=== PATIENT | female | born 1995 | race Caucasian/White ===

== ENCOUNTER 2016-10-25 23:42 | Emergency (ER) | payer OTHER ==
[2016-10-25 23:47] VITALS: BP 150/91; PULSE 88; TEMP 98; BMI 25.0
[2016-10-26 01:48] LABS: BASOPHIL 0.3 % (0-2.0); EOSINOPHIL 0.8 % (0-4.5); MCH 20.4 pg (25.7-33.7); MCHC 32.2 g/dl (32.0-36.0); MEAN CELL VOLUME 63.4 fl (80-96); MEAN PLT VOLUME 9.1 fl (7.5-11.1); NEUTROPHILS 74.4 % (42.8-82.8); PLATELET COUNT 266 K/MM3 (134-434); RDW 18.9 % (11.6-15.6); WHITE BLOOD COUNT 15.6 K/mm3 (4.0-10.0)
--- NOTE | 2016-10-26 02:50 | PDOC ---
History of Present Illness - General Chief Complaint: Vaginal Bleeding Stated Complaint: VAGINAL BLEEDING Time Seen by Provider: 10/26/16 00:07 - History of Present Illness Initial Comments: 10/26/16 02:49 CHIEF COMPLAINT: vaginal bleeding HISTORY OF PRESENT ILLNESS: 21 yo F 8 week F with no significant PMH presents to ED with suprapubic discomfort x 2 weeks with 3 episodes of vaginal bleeding. Patient reports the bleeding as very little but she was concerned. She reports some nausea over the past two weeks with 3-4 episodes of vomiting, denies fever, diarrhea. No recent travel or sick contacts. PAST MEDICAL HISTORY: Denies past medical history FAMILY HISTORY: Denies SOCIAL HISTORY: Denies tobacco, alcohol, illicit drug use. SURGICAL HISTORY: Denies ALLERGIES: No known drug allergies REVIEW OF SYSTEMS General/Constitutional: Denies fever or chills. Denies weakness, weight change. HEENT: Denies change in vision. Denies ear pain or discharge. Denies sore throat. Cardiovascular: Denies chest pain or shortness of breath. Respiratory: Denies cough, wheezing, or hemoptysis. Gastrointestinal: Suprapubic discomfort. Nausea, 3-4 episodes of vomiting. Denies diarrhea, constipation rectal bleeding. Genitourinary: Denies dysuria, frequency, or change in urination. Musculoskeletal: Denies joint or muscle swelling or pain. Denies neck or back pain. Skin and breasts: Denies rash or easy bruising. PHYSICAL EXAM General Appearance: Well-appearing, appropriately dressed. No apparent distress.. HEENT: EOMI, PERRLA, normal voice. No conjunctival pallor. No photophobia, scleral icterus. Respiratory/Chest: Lungs CTAB. Cardiovascular: RRR. S1, S2. Gastrointestinal/Abdominal: Normal bowel sounds. Abdomen soft, non-distended. No tenderness or rebound tenderness. No organomegaly, pulsatile mass, guarding , hernia, hepatomegaly, splenomegaly. Pelvic: External genitalia normal without lesions. Vaginal vault is clear without blood or discharge. Cervix is long and closed. No cervical motion tenderness. Uterus is nontender and normal in size. Adnexa are nontender and without masses. Musculoskeletal/Extremities: Normal inspection. FROM of all extremities, normal capillary refill. Pelvis Stable. No CVA tenderness. No tenderness to extremities, pedal edema, swelling, erythema or deformity. Integumentary: Appropriate color, dry, warm. No cyanosis, erythema, jaundice or rash Neurologic: diabetes solutions specialist II-XII intact. Fully oriented, alert. Appropriate mood/affect. Motor strength 5/5. No appreciable EOM palsy, facial droop or sensory deficit. 10/26/16 02:56 Past History - Past Medical History Allergies/Adverse Reactions: Allergies Allergy/AdvReac Type Severity Reaction Status Date / Time No Known Allergies Allergy Verified 10/25/16 23:45 Home Medications: Ambulatory Orders NK [No Known Home Medication] 10/25/16 Anemia: Yes - Surgical History Cardiac Surgery: Yes (x2) - Reproductive History (#): 4 Para: 2 - Psycho/Social/Smoking Cessation Hx Anxiety: No Suicidal Ideation: No Smoking History: Never smoked Have you smoked in the past 12 months: No Hx Alcohol Use: No Drug/Substance Use Hx: No Substance Use Type: None *Physical Exam - Vital Signs Last Vital Signs Temp Pulse Resp BP Pulse Ox 98 F 88 18 150/91 100 10/25/16 23:46 10/25/16 23:46 10/25/16 23:46 10/25/16 23:46 10/25/16 23:46 ED Treatment Course - LABORATORY CBC & Chemistry Diagram: 10/26/16 01:40 - ADDITIONAL ORDERS Additional order review: Laboratory Results 10/26/16 01:40 Beta HCG, Quant [id number] 10/26/16 01:40 RBC 4.97 MCV 63.4 L MCHC 32.2 RDW 18.9 H D MPV 9.1 Neutrophils % 74.4 Lymphocytes % 17.1 Monocytes % 7.4 Eosinophils % 0.8 Basophils % 0.3 - RADIOLOGY Radiology Studies Ordered: Category Date Time Status <14WKS US [US] Stat Ultrasound 10/26/16 00:18 Taken Medical Decision Making - Medical Decision Making 10/26/16 02:59 21 yo 8 week F with no significant PMH presents to ED with vaginal bleeding and suprapubic cramping. -CBC, CMP, T&S -TV U/S eval IUP/FHT Labs: WBC 15.6, wnl for . T&S - O+, no indication for rhogam Ultrasound results: FINDINGS: Ultrasound :Uterus is anteverted and measures 11.2centimeters in length. There is a single live IUP with estimated gestational age of 7weeks and onedays. There is a normal heart rate of 163beats per minute. There is no subchorionic bleed. The right ovary measures 2.6centimeters in length and appears normal. The left ovary measures 2.7centimeters in length and appears normal. There is no significant free fluid. Pelvic duplex: There is normal arterial and venous flow in both ovaries. IMPRESSION: Live IUP with estimated age 7 weeks one day, without definite abnormalities. Read by: Tito Villalobos MD Advised patient that she must follow up in two days for repeat hCG, either in this ER or with OB. Referral for OB provided. Advised patient of signs and symptoms for return to ER; patient verbalized understanding and agrees to plan. *DC/Admit/Observation/Transfer Diagnosis at time of Disposition: Threatened in first trimester - Discharge Dispostion Disposition: HOME Condition at time of disposition: Stable Admit: No - Referrals Referrals: Lane Castrejon MD [Staff Physician] - - Patient Instructions Printed Discharge Instructions: DI for Threatened Additional Instructions: As discussed, you have to return to this ER or go to the track car operator in 2 days for a repeat blood test. If you experience any severe vaginal bleeding (more than one soaked pad an hour), headache, dizziness, or persistent vomiting and are unable to tolerate any food or fluids, please return to the ER. Rodger se discuti, usted tiene que regresar a dunia ER o ir al obstetra en 2 fishman para thad otra prueba de allan. Si tiene thad hemorragia vaginal severa (ms de thad almohadilla empapada por hora), dolor de jennifer, mareos o vmitos persistentes y no puede tolerar ningn alimento o lquidos, por favor regrese a la nathan de emergencias. Print Language: MALAGASY
[2016-10-26 03:03] LABS: PLATELET COMMENT2 NO CLOTTING DETECTED; PLATELET ESTIMATE ADEQUATE (NORMAL); POLYCHROMASIA 2+
[2016-10-26 03:04] LABS: ANISOCYTOSIS 2+; HYPOCHROMIA 2+; MICROCYTOSIS 3+; POIKILOCYTOSIS 2+
== END 2016-10-26 04:18 | disposition home or self-care (01) ==
LOC: JER 23:42
DX: O26.891 Other specified pregnancy related conditions, first trimester (principal); O20.0 Threatened abortion; Z3A.08 8 weeks gestation of pregnancy
CPT/HCPCS: 36415; 76801-TC; 84702; 85025; 86850; 86900; 86901; 99283-25

== ENCOUNTER 2016-11-14 00:25 | Emergency (ER) | payer OTHER ==
[2016-11-14] MEDS ORDERED: SODIUM CHLORIDE 1,000 ML IV STA (02:56)
--- NOTE | 2016-11-14 03:07 | PDOC ---
History of Present Illness - General Chief Complaint: Vaginal Bleeding Stated Complaint: 10 WKS/VAGINAL BLEEDING Time Seen by Provider: 11/14/16 02:42 History Source: Patient Exam Limitations: Language Barrier (Clever promotion specialist used for this service) - History of Present Illness Initial Comments: 11/14/16 04:56 21 year old 10 week female with pelvic pain and vaginal bleeding x 1 day. + nausea and vomiting. denies fever. History of thalessemia Past History - Past Medical History Allergies/Adverse Reactions: Allergies Allergy/AdvReac Type Severity Reaction Status Date / Time No Known Allergies Allergy Verified 11/14/16 03:23 Home Medications: Ambulatory Orders Nitrofurantoin Monohyd/M-Cryst [Macrobid -] 100 mg PO BID #14 capsule 11/14/16 Anemia: Yes - Surgical History Cardiac Surgery: Yes (x2) - Reproductive History (#): 4 Para: 2 - Psycho/Social/Smoking Cessation Hx Anxiety: No Suicidal Ideation: No Smoking History: Never smoked Have you smoked in the past 12 months: No Hx Alcohol Use: No Drug/Substance Use Hx: No Substance Use Type: None Review of Systems - Review of Systems Able to Perform ROS?: Yes Is the patient limited Yi proficient: No Constitutional: No: Symptoms Reported, See HPI, Chills, Diaphoresis, Fever, Loss of Appetite, Malaise, Night Sweats, Weakness, Weight Stable, Unintentional Wgt. Loss, Unexplained wgt Loss, Other ABD/GI: Yes: Nausea, Vomiting Neurological: Yes: Headache. No: Symptoms reported, See HPI, Numbness, Paresthesia, Pre-Existing Deficit, Seizure, Tingling, Tremors, Weakness, Unsteady Gait, Ataxia, Dizziness, Other *Physical Exam - Vital Signs 11/14/16 05:11 Last Vital Signs Temp Pulse Resp BP Pulse Ox 98.0 F 82 14 150/102 100 11/14/16 03:23 11/14/16 03:23 11/14/16 03:23 11/14/16 03:23 11/14/16 03:23 - Physical Exam General Appearance: Yes: Appropriately Dressed HEENT: positive: Normal ENT Inspection Respiratory/Chest: positive: Lungs Clear, Normal Breath Sounds Cardiovascular: positive: Regular Rhythm, Regular Rate Female Pelvic Exam: positive: normal external exam, cervical os closed, other ( yellow/ brown discharge) Gastrointestinal/Abdominal: positive: Normal Bowel Sounds, Soft Extremity: positive: Normal Capillary Refill, Normal Inspection, Normal Range of Motion, Pelvis Stable Integumentary: positive: Normal Color, Dry, Warm Neurologic: positive: Fully Oriented, Alert, Normal Mood/Affect, Normal Response , Motor Strength / ED Treatment Course - LABORATORY CBC & Chemistry Diagram: 11/14/16 03:43 11/14/16 03:43 Progress Note - Progress Note Progress Note: A: pelvic pain in 1st trimester with vaginal bleeding P: cbc cmp ua: WBC + 1 leuks US : pending Medical Decision Making - Medical Decision Making 11/14/16 07:08 pending US results. patient signed out to Darlyn ANDRADE. *DC/Admit/Observation/Transfer Diagnosis at time of Disposition: Pelvic pain affecting in first trimester, antepartum Urinary tract infection Qualifiers: Urinary tract infection type: acute cystitis Hematuria presence: with hematuria Qualified Code(s): N30.01 - Acute cystitis with hematuria - Discharge Dispostion Disposition: HOME Condition at time of disposition: Good - Prescriptions Prescriptions: Nitrofurantoin Monohyd/M-Cryst [Macrobid -] 100 mg PO BID #14 capsule - Referrals Referrals: STAFF,NOT ON [Primary Care Provider] - - Patient Instructions Printed Discharge Instructions: Urinary Tract Infection Additional Instructions: Please drink plenty of fluids and take Macrobid as prescribed. Please follow-up with your PULP COOKER and if symptoms worsen return to the ED.
[2016-11-14 03:24] VITALS: BMI 28.3
[2016-11-14 04:22] LABS: BASOPHIL 0.6 % (0-2.0); EOSINOPHIL 1.7 % (0-4.5); MCH 20.9 pg (25.7-33.7); MCHC 32.7 g/dl (32.0-36.0); MEAN PLT VOLUME 9.1 fl (7.5-11.1); NEUTROPHILS 61.6 % (42.8-82.8); PLATELET COUNT 229 K/MM3 (134-434); RDW 20.6 % (11.6-15.6); WHITE BLOOD COUNT 10.4 K/mm3 (4.0-10.0)
[2016-11-14 04:23] LABS: URINE APPEARANCE SLCLOUDY; URINE BILIRUBIN NEGATIVE (NEGATIVE); URINE BLOOD NEGATIVE (NEGATIVE); URINE COLOR LTYELLOW; URINE GLUCOSE (UA) NEGATIVE (NEGATIVE); URINE KETONE NEGATIVE (NEGATIVE); URINE NITRITE NEGATIVE (NEGATIVE); URINE PROTEIN NEGATIVE (NEGATIVE); URINE UROBILINOGEN NEGATIVE E.U./dl (0.2-1.0)
[2016-11-14 04:29] LABS: URINE LEUK ESTERASE 1+ (NEGATIVE)
[2016-11-14 04:32] LABS: URINE BACTERIA FEW /hpf (NONE SEEN); URINE MUCUS RARE; URINE RBC 1 /hpf (0-3); URINE WBC 16 /hpf (3-5)
--- NOTE | 2016-11-14 04:37 | PDOC ---
*Physical Exam - Vital Signs Last Vital Signs Temp Pulse Resp BP Pulse Ox 98.0 F 82 14 150/102 100 11/14/16 03:23 11/14/16 03:23 11/14/16 03:23 11/14/16 03:23 11/14/16 03:23 ED Treatment Course - LABORATORY CBC & Chemistry Diagram: 11/14/16 03:43 11/14/16 03:43 - ADDITIONAL ORDERS Additional order review: Laboratory Results 11/14/16 03:19 Urine Color Ltyellow Urine Appearance Slcloudy Urine pH 6.0 Ur Specific [place] 1.012 Urine Protein Negative Urine Glucose (UA) Negative Urine Ketones Negative Urine Blood Negative Urine Nitrite Negative Urine Bilirubin Negative Urine Urobilinogen Negative Ur Leukocyte Esterase 1+ H D Urine RBC 1 Urine WBC 16 Ur Epithelial Cells Few Urine Bacteria Few Urine Mucus Rare 11/14/16 03:43 RBC 4.82 MCV 64.0 L MCHC 32.7 RDW 20.6 H MPV 9.1 Neutrophils % 61.6 Lymphocytes % 26.9 D Monocytes % 9.2 Eosinophils % 1.7 D Basophils % 0.6 - Medications Given in the ED: ED Medications Discontinued Medications Generic Name Dose Route Start Last Admin Trade Name Freq PRN Reason Stop Dose Admin Sodium Chloride 1,000 mls @ 1,000 mls/hr 11/14/16 02:56 11/14/16 04:17 Normal Saline - IV 11/14/16 03:55 1,000 mls/hr ASDIR STA Administration Medical Decision Making - Medical Decision Making 11/14/16 04:37 agree with care from RAYMOND Diamond *DC/Admit/Observation/Transfer Diagnosis at time of Disposition: Urinary tract infection - Discharge Dispostion Disposition: HOME Condition at time of disposition: Good - Prescriptions Prescriptions: Nitrofurantoin Monohyd/M-Cryst [Macrobid -] 100 mg PO BID #14 capsule - Referrals Referrals: STAFF,NOT ON [Primary Care Provider] - - Patient Instructions Printed Discharge Instructions: Urinary Tract Infection Additional Instructions: Please drink plenty of fluids and take Macrobid as prescribed. Please follow-up with your SECURITY GUARD DISPATCHER and if symptoms worsen return to the ED.
[2016-11-14 04:45] LABS: ALBUMIN 2.9 g/dl (3.4-5.0); ANION GAP 9 (8-16); BILIRUBIN,TOTAL 0.2 mg/dL (0.2-1.0); CALCIUM 8.4 mg/dL (8.5-10.1); CO2 26 mmol/L (21-32); CREATININE 0.6 mg/dL (0.55-1.02); GLUCOSE,RANDOM 90 mg/dL (74-106); SGOT/AST 18 U/L (15-37); SGPT/ALT 25 U/L (12-78); TOT PROT 6.8 g/dl (6.4-8.2)
[2016-11-14 04:46] LABS: ALK PHOS 92 U/L (45-117)
[2016-11-14 05:05] LABS: ANISOCYTOSIS 2+; HYPOCHROMIA 3+; MICROCYTOSIS 2+; OVALOCYTES 1+; PLATELET ESTIMATE ADEQUATE (NORMAL); POIKILOCYTOSIS 1+; POLYCHROMASIA 1+
[2016-11-14] MEDS ORDERED: NITROFURANTOIN MACROCRYSTAL 50 MG CAPSULE (FP) PO SCH (05:15)
[2016-11-14] MEDS ORDERED: NITROFURANTOIN MACROCRYSTAL 50 MG CAPSULE (FP) ONE (05:55)
--- NOTE | 2016-11-14 10:14 | PDOC ---
*Physical Exam - Vital Signs Last Vital Signs Temp Pulse Resp BP Pulse Ox 98.0 F 82 14 150/102 100 11/14/16 03:23 11/14/16 03:23 11/14/16 03:23 11/14/16 03:23 11/14/16 03:23 ED Treatment Course - LABORATORY CBC & Chemistry Diagram: 11/14/16 03:43 11/14/16 03:43 - ADDITIONAL ORDERS Additional order review: Laboratory Results 11/14/16 11/14/16 11/14/16 03:43 03:43 03:19 Sodium 138 Potassium 3.8 Chloride 103 Carbon Dioxide 26 Anion Gap 9 BUN 5 L Creatinine 0.6 Creat Clearance w eGFR > 60 Random Glucose 90 Calcium 8.4 L Total Bilirubin 0.2 AST 18 ALT 25 Alkaline Phosphatase 92 Total Protein 6.8 Albumin 2.9 L Beta HCG, Quant [id number] Urine Color Ltyellow Urine Appearance Slcloudy Urine pH 6.0 Ur Specific [place] 1.012 Urine Protein Negative Urine Glucose (UA) Negative Urine Ketones Negative Urine Blood Negative Urine Nitrite Negative Urine Bilirubin Negative Urine Urobilinogen Negative Ur Leukocyte Esterase 1+ H D Urine RBC 1 Urine WBC 16 Ur Epithelial Cells Few Urine Bacteria Few Urine Mucus Rare 11/14/16 03:43 RBC 4.82 MCV 64.0 L MCHC 32.7 RDW 20.6 H MPV 9.1 Neutrophils % 61.6 Lymphocytes % 26.9 D Monocytes % 9.2 Eosinophils % 1.7 D Basophils % 0.6 - Medications Given in the ED: ED Medications Discontinued Medications Generic Name Dose Route Start Last Admin Trade Name Freq PRN Reason Stop Dose Admin Sodium Chloride 1,000 mls @ 1,000 mls/hr 11/14/16 02:56 11/14/16 04:17 Normal Saline - IV 11/14/16 03:55 1,000 mls/hr ASDIR STA Administration Medical Decision Making - Medical Decision Making 11/14/16 08:13 Patient in her first trimester complaining of abdominal pain with positive UTI. Patient awaiting ultrasound. 11/14/16 10:13 Ultrasound shows a single live intrauterine estimating at 10 weeks 6 days with a heart rate of 1 50 bpm. Patient has prescription for Macrobid. Will discharge. No urine culture was sent. Urine culture ordered. *DC/Admit/Observation/Transfer Diagnosis at time of Disposition: Urinary tract infection Qualifiers: Urinary tract infection type: acute cystitis Hematuria presence: with hematuria Qualified Code(s): N30.01 - Acute cystitis with hematuria - Discharge Dispostion Disposition: HOME Condition at time of disposition: Good - Prescriptions Prescriptions: Nitrofurantoin Monohyd/M-Cryst [Macrobid -] 100 mg PO BID #14 capsule - Referrals Referrals: STAFF,NOT ON [Primary Care Provider] - - Patient Instructions Printed Discharge Instructions: Urinary Tract Infection Additional Instructions: Please drink plenty of fluids and take Macrobid as prescribed. Please follow-up with your MINE SURVEYOR and if symptoms worsen return to the ED. - Post Discharge Activity
[2016-11-14 11:02] VITALS: TEMP 98.5
[2016-11-14 11:05] VITALS: BP 126/68; PULSE 80
== END 2016-11-14 11:05 | disposition home or self-care (01) ==
LOC: JER 00:25
PROC: 3E0337Z Introduction of Electrolytic and Water Balance Substance into Peripheral Vein, Percutaneous Approach (ICD-10-PCS; principal; 2016-11-14)
DX: O23.31 Infections of other parts of urinary tract in pregnancy, first trimester (principal); Z3A.10 10 weeks gestation of pregnancy
CPT/HCPCS: 36415; 76815; 76817-TC; 80053; 81003; 81015; 84702; 85025; 87086; 96360; 99284-25

== ENCOUNTER 2017-05-31 12:40 | Inpatient (IN) | payer OTHER ==
[~2017-05-31 12:40] MED LIST: ELECTROLYTE-148 SOLN 500 ML IV ONE
[2017-05-31] MEDS: ELECTROLYTE-148 SOLN 1,000 ML IV SCH (13:20)
[2017-05-31 13:28] VITALS: BMI 30.8
[2017-05-31] MEDS ORDERED: CITRIC ACID/SODIUM CITRATE 30 ML UNIT-DOSE CUP PO ONE (14:00)
[2017-05-31] MEDS ORDERED: morphine SULFATE/Preservative Free 0.5 MG/ML (1cc Syringe) SPIN ONE (14:59)
[2017-05-31] MEDS ORDERED: ONDANSETRON 4 MG/2 ML VIAL IVPUSH PRN (15:03)
[2017-05-31] MEDS ORDERED: IBUPROFEN 600 MG TABLET (FP) PO PRN (15:03)
[2017-05-31] MEDS ORDERED: oxyCODONE HCL 5 MG TABLET PO PRN (15:39)
[2017-05-31] MEDS ORDERED: BENZOCAINE 20% 57 GM BOTTLE TP PRN (15:39)
[2017-05-31] MEDS ORDERED: BENZOCAINE 28 GM HEMORRHOIDAL OINTMENT PR PRN (15:39)
[2017-05-31] MEDS ORDERED: diphenhydrAMINE HCL 25 MG CAPSULE (FP) PO PRN (15:39)
[2017-05-31] MEDS ORDERED: WITCH HAZEL 50% (TUCKS) 40 PAD/JAR PAD TP PRN (15:39)
[2017-05-31] MEDS ORDERED: METHYLERGONOVINE MALEATE 0.2 MG/1 ML AMP IM PRN (15:39)
[2017-05-31] MEDS ORDERED: OXYTOCIN 20 UNITS in 0.9% NS 1,000 ML IV SCH (15:45)
[2017-05-31] MEDS ORDERED: DEXTROSE 5%-LACTATED RINGERS 1,000 ML IV SCH (15:45)
--- NOTE | 2017-05-31 16:23 | HP ---
Past Medical History - Primary Care Physician PCP:: Lane Castrejon - Admission Chief Complaint: 39 weeks, previous c/s, for repeat c/s History of Present Illness: 21 yo f edc by sono 06/06/17 39 weeks with 2 previous c/s requesting repeat c/s, risks discussed History Source: Patient Limitations to Obtaining History: Language Barrier - Past Medical History ...: 4 ...Para: 2 ...Term: 2 ...: 0 ...Spon : 1 ...Induced : 0 ...Multiple Gestation: 0 ...LMP: 08/28/16 ... Weeks Gestation by Dates: 39.3 ...EDC by Dates: 06/04/17 ...EDC by Sono: 06/06/17 Heme/Onc: Yes: Anemia, Sickle Cell Trait - Past Surgical History Past Surgical History: Yes: Hx Myomectomy: No Hx Transabdominal Cerclage: No - Smoking History Smoking history: Never smoked Have you smoked in the past 12 months: No - Alcohol/Substance Use Hx Alcohol Use: No - Social History Usual Living Arrangement: Yes: With Spouse History of Recent Travel: No Home Medications - Allergies Allergies/Adverse Reactions: Allergies Allergy/AdvReac Type Severity Reaction Status Date / Time No Known Allergies Allergy Verified 05/31/17 13:48 - Home Medications Home Medications: Ambulatory Orders Ferrous Sulfate [Feosol] 325 mg PO TID 05/31/17 Vitamins (Sjr) - 1 tab PO DAILY 05/31/17 Review of Systems - Review of Systems Constitutional: reports: No Symptoms Eyes: reports: No Symptoms HENT: reports: No Symptoms Neck: reports: No Symptoms Cardiovascular: reports: No Symptoms Respiratory: reports: No Symptoms Gastrointestinal: reports: No Symptoms Genitourinary: reports: No Symptoms Breasts: reports: No Symptoms Reported Musculoskeletal: reports: No Symptoms Integumentary: reports: No Symptoms Neurological: reports: No Symptoms Endocrine: reports: No Symptoms Hematology/Lymphatic: reports: No Symptoms Psychiatric: reports: No Symptoms Physical Exam - Maternity Vital Signs: Vital Signs Temperature 97.8 F 05/31/17 15:45 Pulse Rate 79 05/31/17 16:00 Respiratory Rate 15 05/31/17 16:00 Blood Pressure 112/69 05/31/17 16:00 O2 Sat by Pulse Oximetry (%) 100 05/31/17 16:00 Constitutional: Yes: Well Nourished, No Distress, Calm Eyes: Yes: WNL, Conjunctiva Clear, EOM Intact HENT: Yes: WNL, Atraumatic, Normocephalic Neck: Yes: WNL, Supple, Trachea Midline Cardiovascular: Yes: WNL, Regular Rate and Rhythm Breast(s): Yes: WNL - Abdominal Exam/OB Fundal Height: 38 Number of Fetuses: Single Presentation: Vertex Contractions: No Intensity: Unaware Heart Rate Location: [facility] Category: I Accelerations: Uniform Decelerations: None - Vaginal Exam/OB Vaginal Bleediing: No Speculum Exam: No Dilatation (cm): closed Effacement (%): 20 Amniotic Membrane Status: Intact Presentation: Vertex/Position Station: -3 - Physical Exam Edema: Yes Edema: LLE: Trace, RLE: Trace Deep Tendon Reflex Grade: Normal +2 Psychiatric: Yes: Alert Problem List - Problems (1) with 39 completed weeks gestation Code(s): Z3A.39 - 39 WEEKS GESTATION OF (2) Previous section complicating Code(s): O34.219 - MATERNAL CARE FOR UNSP TYPE SCAR FROM PREVIOUS DEL Assessment/Plan admit for repeat c/s . risks discussed,
[2017-05-31] MEDS: CEFAZOLIN 1 GM/D5W 50 ML IVPB SCH (18:13)
[2017-05-31] MEDS ORDERED: DIPHTH,PERTUSS(ACELL),TET 0.5 ML DISP.SYRIN IM ONE (18:15)
[2017-05-31] MEDS: IBUPROFEN 800 MG/8 ML IJ IVPB PRN (18:35)
--- NOTE | 2017-05-31 23:45 | OP ---
DATE OF OPERATION: 05/31/2017 PREOPERATIVE DIAGNOSES: at 39 weeks; previous section; requests a repeat section. POSTOPERATIVE DIAGNOSES: at 39 weeks; previous section; requests a repeat section. PROCEDURE: Repeat low segment transverse section. SURGEON: Lane Castrejon MD PRODUCTION LEADER: TIERA Fernández ANESTHESIA: Spinal anesthesia; Jorge Hickman MD ESTIMATED BLOOD LOSS: 500 mL. OPERATION: The patient was taken to the operating room with spinal anesthesia, abdomen and perineum were prepped and draped. Pfannenstiel abdominal skin incision was made. Abdominal wall was cut [id number] until peritoneum was exposed and incised. Upon entering the abdominal cavity, the lower uterine segment was identified and uterovesical fold of peritoneum established. Bladder was pushed down. A low transuterine incision was made; incision extended laterally. Amniotic sac was entered; clear fluid. Head delivered from left occiput transposition. Nasopharynx was suctioned and live baby was delivered without any difficulty. Placenta was delivered manually. Uterine cavity was cleaned of all remaining tissue. Uterine incision was closed in 2 layers; first layer with 0 Biosyn continuous suture, the second layer with 0 Biosyn imbricating the first layer. Bladder flap was closed with 0 Biosyn continuous suture. Both tubes and ovaries were checked; were normal. No active bleeding was seen. All the laparotomy counts, sponge counts, instrument counts were correct, then peritoneum was closed with 0 Biosyn continuous suture. Muscles were brought together with interrupted suture of 0 Biosyn. Fascia was closed with 0 Biosyn continuous suture, subcutaneous fat with interrupted suture of 0 Biosyn, and the skin was closed with harjit. The patient tolerated the procedure well; left the OR in good condition. Lisa [id number]
[2017-06-01] MEDS: CEFAZOLIN 1 GM/D5W 50 ML IVPB SCH (01:48)
[2017-06-01] MEDS: IBUPROFEN 800 MG/8 ML IJ IVPB PRN (03:56)
[2017-06-01 08:09] LABS: BASOPHIL 0.4 % (0-2.0); EOSINOPHIL 7.8 % (0-4.5); MCHC 31.6 g/dl (32.0-36.0); MEAN CELL VOLUME 62.9 fl (80-96); MEAN PLT VOLUME 8.4 fl (7.5-11.1); NEUTROPHILS 67.9 % (42.8-82.8); PLATELET COUNT 176 K/MM3 (134-434); RDW 18.6 % (11.6-15.6); WHITE BLOOD COUNT 14.2 K/mm3 (4.0-10.0)
[2017-06-01 08:13] LABS: MCH 19.9 pg (25.7-33.7)
--- NOTE | 2017-06-01 08:19 | PN ---
Progress Note (short form) - Note Progress Note: pod 1 doing well, has mild cramps abdomen soft , no distension, no cva incision dry, clean no calf tenderness CBC, BMP 06/01/17 07:00 Last Vital Signs Temp Pulse Resp BP Pulse Ox 97.7 F 88 20 110/70 100 06/01/17 06:00 06/01/17 06:00 06/01/17 06:00 06/01/17 06:00 05/31/17 16:30 impression anemia , asymptomatic. pulse normal plan observe, repeat cbc, iron vit Problem List - Problems (1) with 39 completed weeks gestation Code(s): Z3A.39 - 39 WEEKS GESTATION OF (2) Previous section complicating Code(s): O34.219 - MATERNAL CARE FOR UNSP TYPE SCAR FROM PREVIOUS DEL
[2017-06-01] MEDS: ENOXAPARIN NA (PORCINE) 40 MG/0.4 ML DISP.SYRIN SQ SCH (09:35)
[2017-06-01 09:41] LABS: HYPOCHROMIA 3+; MICROCYTOSIS 3+
[2017-06-01 09:42] LABS: ANISOCYTOSIS 2+
--- NOTE | 2017-06-01 12:07 | PN ---
Progress Note (short form) - Note Progress Note: Anesthesia POD#1 S/P under spinal and Duramorph VSS,no N/V,lower extremities full strength. HB dropped but patient is asymptomatic,pain is under control. Nancy Tran MD.
[2017-06-01] MEDS: SIMETHICONE 80 MG TAB.CHEW (FP) PO PRN ×3 (12:49→21:09)
[2017-06-01] MEDS: ACETAMINOPHEN 325 MG TABLET (FP) PO PRN ×3 (12:49→21:09)
[2017-06-01] MEDS: ELECTROLYTE-148 SOLN 1,000 ML IV SCH (13:00)
[2017-06-01] MEDS ORDERED: FLU VACC QS2017-18 36MOS UP/PF 60 MCG/0.5 ML SYRINGE IM ONE (14:00)
[2017-06-01] MEDS ORDERED: DIPHTH,PERTUSS(ACELL),TET 0.5 ML DISP.SYRIN IM ONE ×2 (14:00)
[2017-06-01] MEDS ORDERED: BISACODYL 10 MG SUPP.RECT PR PRN (15:39)
[2017-06-01] MEDS: IBUPROFEN 600 MG TABLET (FP) PO PRN ×2 (16:56→21:14)
[2017-06-01] MEDS: SENNOSIDES/DOCUSATE COMBO (SENNA PLUS) TABLET (UD) PO PRN (21:14)
--- NOTE | 2017-06-02 08:56 | PN ---
Progress Note (short form) - Note Progress Note: pod 2 doing well, no c/o, no excess vaginal bleeding, no dizziness Last Vital Signs Temp Pulse Resp BP Pulse Ox 98 F 85 20 136/99 100 06/02/17 06:49 06/02/17 06:49 06/02/17 06:49 06/02/17 06:49 05/31/17 16:30 CBC, BMP 06/01/17 07:00 abdomen soft, uterus firm, non tender lochia mild no calf tenderness plan ambulate, cbc in am, iron vit Problem List - Problems (1) with 39 completed weeks gestation Code(s): Z3A.39 - 39 WEEKS GESTATION OF (2) Previous section complicating Code(s): O34.219 - MATERNAL CARE FOR UNSP TYPE SCAR FROM PREVIOUS DEL
[2017-06-02] MEDS: ENOXAPARIN NA (PORCINE) 40 MG/0.4 ML DISP.SYRIN SQ SCH (09:09)
[2017-06-02] MEDS: SIMETHICONE 80 MG TAB.CHEW (FP) PO PRN ×3 (09:13→20:47)
[2017-06-02] MEDS: IBUPROFEN 600 MG TABLET (FP) PO PRN ×3 (09:13→20:46)
[2017-06-02] MEDS: ACETAMINOPHEN 325 MG TABLET (FP) PO PRN ×3 (09:13→20:46)
[2017-06-02] MEDS: FERROUS SO4 325 MG TABLET (FP) PO SCH ×2 (09:43→17:06)
[2017-06-02] MEDS: PRENATAL VITAMINS W/ FOLIC ACID TABLET (FP) PO SCH (09:43)
[2017-06-02] MEDS: SENNOSIDES/DOCUSATE COMBO (SENNA PLUS) TABLET (UD) PO PRN (20:47)
[2017-06-03] MEDS: oxyCODONE HCL 5 MG TABLET PO PRN ×3 (00:59→13:59)
[2017-06-03] MEDS: ACETAMINOPHEN 325 MG TABLET (FP) PO PRN ×4 (01:00→21:10)
[2017-06-03] MEDS: FERROUS SO4 325 MG TABLET (FP) PO SCH ×2 (07:33→16:53)
[2017-06-03 08:13] LABS: BASOPHIL 0.5 % (0-2.0); EOSINOPHIL 11.8 % (0-4.5); MCH 20.3 pg (25.7-33.7); MEAN CELL VOLUME 63.3 fl (80-96); MEAN PLT VOLUME 8.3 fl (7.5-11.1); NEUTROPHILS 61.3 % (42.8-82.8); PLATELET COUNT 199 K/MM3 (134-434); RDW 18.9 % (11.6-15.6)
[2017-06-03] MEDS: ENOXAPARIN NA (PORCINE) 40 MG/0.4 ML DISP.SYRIN SQ SCH (09:43)
[2017-06-03] MEDS: PRENATAL VITAMINS W/ FOLIC ACID TABLET (FP) PO SCH (09:43)
--- NOTE | 2017-06-03 11:23 | PN ---
Progress Note (short form) - Note Progress Note: pod 3 ambulating, passing gas, no dizziness , no excess vaginal bleeding Last Vital Signs Temp Pulse Resp BP Pulse Ox 97.8 F 82 20 124/74 100 06/03/17 08:18 06/03/17 08:18 06/03/17 08:18 06/03/17 08:18 05/31/17 16:30 abdomen soft, non tender , no cva incision healing well , no defect ,no discharge ext. no edema, non tender CBC, BMP 06/03/17 07:30 impression anemia, asymptomatic ,on iron vit Problem List - Problems (1) with 39 completed weeks gestation Code(s): Z3A.39 - 39 WEEKS GESTATION OF (2) Previous section complicating Code(s): O34.219 - MATERNAL CARE FOR UNSP TYPE SCAR FROM PREVIOUS DEL
[2017-06-03] MEDS: SIMETHICONE 80 MG TAB.CHEW (FP) PO PRN ×2 (13:59→21:11)
[2017-06-03] MEDS: IBUPROFEN 600 MG TABLET (FP) PO PRN (21:11)
[2017-06-03 22:14] VITALS: TEMP 98.1
[2017-06-04] MEDS: IBUPROFEN 600 MG TABLET (FP) PO PRN ×2 (01:22→07:36)
[2017-06-04] MEDS: SIMETHICONE 80 MG TAB.CHEW (FP) PO PRN ×2 (01:22→07:38)
[2017-06-04] MEDS: ACETAMINOPHEN 325 MG TABLET (FP) PO PRN ×2 (01:22→07:37)
--- NOTE | 2017-06-04 08:27 | DS ---
Physical Exam-NURSING STAFF DEVELOPMENT COORDINATOR Vital Signs: Vital Signs Temperature 98.1 F 06/03/17 22:00 Pulse Rate 77 06/03/17 22:00 Respiratory Rate 20 06/03/17 22:15 Blood Pressure 125/77 06/03/17 22:00 O2 Sat by Pulse Oximetry (%) 100 06/03/17 22:15 Constitutional: Yes: Well Nourished, No Distress, Calm Eyes: Yes: WNL, Conjunctiva Clear, EOM Intact HENT: Yes: WNL, Atraumatic, Normocephalic Neck: Yes: WNL, Supple, Trachea Midline Cardiovascular: Yes: WNL, Regular Rate and Rhythm Respiratory: Yes: WNL, Regular, CTA Bilaterally Gastrointestinal: Yes: WNL ...Rectal Exam: Yes: WNL Renal/: Yes: WNL ....Post : Yes: Uterus firm, Uterus non-tender, Slight lochia rubra Breast(s): Yes: WNL Musculoskeletal: Yes: WNL Extremities: Yes: WNL Integumentary: Yes: WNL Wound/Incision: Yes: Clean/Dry, Well Approximated, [place] Intact Neurological: Yes: WNL, Alert, Oriented ...Motor Strength: WNL Psychiatric: Yes: WNL, Alert, Oriented Labs: CBC, BMP 06/03/17 07:30 Delivery - Delivery Section: Repeat, Low Flap Transverse (no complication) Type of Anesthesia: Spinal Episiotomy/Laceration: None EBL (cc): 500 Delivery, Single - Stages of Labor Date of Delivery: 05/31/17 Time of Delivery: 15:12 Time Placenta Delivered: 15:13 Placenta: Yes: Spontaneous - Condition of Human Resources Professional/Knowledge Architect Present: Yes Name: Tenzin Cheek Gender: Male Weight: 7 lb 8 oz Position: Left, OT Total Hours ROM (Hrs/Mins): 0hrs 2min - 1 Minute Total Score: 9 5 Minutes Total Score: 9 - [place] Feeding Plan Initial Plan: Elected not to breastfeed exclusively throughout hospitalization Discharge Summary Reason For Visit: C SECTION Current Active Problems with 39 completed weeks gestation (Acute) Previous section complicating (Acute) Procedures: Principal: repeat LST c/s Condition: Good - Instructions Diet, Activity, Other Instructions: regular diet, follow up [facility] care 1 week, cont iron, PNV Referrals: Lane Castrejon MD [Staff Physician] - Disposition: HOME - Home Medications Comprehensive Discharge Medication List: Ambulatory Orders Ferrous Sulfate [Feosol] 325 mg PO TID 05/31/17 Vitamins (Sjr) - 1 tab PO DAILY 05/31/17 Ibuprofen [Motrin -] 600 mg PO QID #28 tablet 06/03/17
[2017-06-04] MEDS: FERROUS SO4 325 MG TABLET (FP) PO SCH (08:34)
[2017-06-04] MEDS: ENOXAPARIN NA (PORCINE) 40 MG/0.4 ML DISP.SYRIN SQ SCH (10:08)
[2017-06-04] MEDS: PRENATAL VITAMINS W/ FOLIC ACID TABLET (FP) PO SCH (10:08)
[2017-06-04 11:40] VITALS: BP 120/77; PULSE 67
--- NOTE | 2017-06-05 13:15 | PATH ---
Surgical Pathology Report Patient Name: LORENA CAMEJO [facility]. Rec. #: [id number] /Age/Gender: 1995 (Age: 21) / F Account: [id number] Location: [facility] OBS/NURSERYMAN ASSISTANT Taken: 05/31/2017 Received: 06/01/2017 Reported: 06/05/2017 Physicians: Lane Castrejon M.D. Specimen(s) Received PLACENTA Clinical History x2 Final Diagnosis PLACENTA, DELIVERY: THIRD TRIMESTER PLACENTA WITH INFARCT, INTERVILLOUS THROMBI, 3 VESSEL UMBILICAL CORD, AND UNREMARKABLE PLACENTAL MEMBRANES. Electronically Signed Pradeep Zazueta M.D. Gross Description The specimen is received fresh labeled placenta and is a 518 gram, 15.0 x 14.0 x 3.6 cm. placenta with attached membranes and umbilical cord. The attached membranes are madera, translucent with focal opacities and insert marginally. The umbilical cord measures 23 cm. in length and averages 1.3 cm. in diameter. The cord inserts eccentrically, 5 cm. to the nearest margin. No true knots or strictures are identified. Cut surface of the umbilical cord reveals 3 vessels. The surface is ozuna-blue with minimal fibrin deposition and appropriate caliber vessels. The maternal surface is red-brown and intact. Sectioning reveals 3 madera, firm intraparenchymal lesions ranging from 1.0-1.5 cm in greatest dimension. The remaining placental parenchyma is red-brown and spongy. Technology Education Instructor sections are submitted in 5 cassettes as follows: 1-membrane roll and umbilical cord; 2-4-lesions; 5-retail account representative full-thickness section of placenta. /06/04/2017 [facility]06/04/2017
== END 2017-06-04 12:20 | disposition home or self-care (01) | DRG 540 ==
LOC: JLDR 12:40 → J3W 17:00
PROVIDERS: ADMIT Obstetrics & Gynecology; ATTEND Obstetrics & Gynecology
PROC: 10D00Z1 Extraction of Products of Conception, Low, Open Approach (ICD-10-PCS; principal; 2017-05-31)
DX: O34.211 Maternal care for low transverse scar from previous cesarean delivery (principal); O99.02 Anemia complicating childbirth; D57.3 Sickle-cell trait; Z3A.39 39 weeks gestation of pregnancy; Z37.0 Single live birth
CPT/HCPCS: 36415; 85025; 88307-TC; 90686; 90715; G0008

== ENCOUNTER 2017-12-03 16:00 | Emergency (ER) | payer OTHER ==
--- NOTE | 2017-12-03 16:11 | PDOC ---
Rapid Medical Evaluation Time Seen by Provider: 12/03/17 16:08 Medical Evaluation: Allergies Allergy/AdvReac Type Severity Reaction Status Date / Time No Known Allergies Allergy Verified 06/16/17 18:52 12/03/17 16:08 I have performed a brief in-person evaluation of this patient. The patient presents with a chief complaint of: lower abd pain, 20 days bleeding , feels weak, pain everywhere, dizziness, dyspnea on exertion Pertinent physical exam findings: well appearing, VSS I have ordered the following: labs The patient will proceed to the ED for further evaluation. Discharge Disposition - Diagnosis Vaginal bleeding - Referrals - Patient Instructions - Post Discharge Activity
[2017-12-03 16:12] VITALS: BP 155/94; PULSE 88; TEMP 98.2; BMI 28.7
[2017-12-03 16:45] LABS: BASO % 0.8 % (0-2.0); EOS % 2.1 % (0-4.5); HEMATOCRIT 30.5 % (32.4-45.2); HEMOGLOBIN 9.8 GM/dL (10.7-15.3); LYMPH % 24.9 % (8-40); MEAN CELL VOLUME 59.8 fl (80-96); MEAN PLT VOLUME 8.9 fl (7.5-11.1); MONO % 8.2 % (3.8-10.2); PLATELET COUNT 272 K/MM3 (134-434); RDW 19.6 % (11.6-15.6); WHITE BLOOD COUNT 7.6 K/mm3 (4.0-10.0)
[2017-12-03 16:51] LABS: MCH 19.1 pg (25.7-33.7)
[2017-12-03 16:52] LABS: ADD RBC MORPHOLOGY YES
[2017-12-03 16:58] LABS: INR 1.12 (0.82-1.09); PROTHROMBIN TIME (PATIENT) 12.7 SEC (9.7-13.0)
[2017-12-03 17:00] LABS: ACTIVATED PTT 28.9 SECONDS (26.9-34.4)
[2017-12-03 17:23] LABS: ALBUMIN 3.4 g/dl (3.4-5.0); ANION GAP 5 (8-16); BLOOD UREA NITROGEN 9 mg/dL (7-18); CALCIUM 8.6 mg/dL (8.5-10.1); CHLORIDE 106 mmol/L (98-107); CO2 28 mmol/L (21-32); CREATININE 0.7 mg/dL (0.55-1.02); GLUCOSE,RANDOM 86 mg/dL (74-106); SGOT/AST 17 U/L (15-37); SGPT/ALT 20 U/L (12-78); SODIUM 139 mmol/L (136-145)
[2017-12-03 17:25] LABS: ALK PHOS 111 U/L (45-117); BILIRUBIN,TOTAL 0.4 mg/dL (0.2-1.0); TOT PROT 7.6 g/dl (6.4-8.2)
[2017-12-03 17:49] LABS: URINE APPEARANCE SLCLOUDY; URINE BILIRUBIN NEGATIVE (<2.0 mg/dL); URINE BLOOD 3+ (NEGATIVE); URINE COLOR YELLOW; URINE GLUCOSE (UA) NEGATIVE (NEGATIVE); URINE KETONE NEGATIVE (NEGATIVE); URINE NITRITE NEGATIVE (NEGATIVE); URINE UROBILINOGEN NEGATIVE mg/dL (0.2-1.0)
[2017-12-03 18:23] LABS: URINE LEUK ESTERASE 1+ (NEGATIVE); URINE PROTEIN 1+ (NEGATIVE)
--- NOTE | 2017-12-03 18:24 | PDOC ---
History of Present Illness - General Chief Complaint: Vaginal Bleeding Stated Complaint: VAGINAL BLEEDING Time Seen by Provider: 12/03/17 16:08 History Source: Patient Exam Limitations: No Limitations - History of Present Illness Initial Comments: CHIEF COMPLAINT: 22 y/o afebrile female c/o vaginal bleeding x 20 days with dizziness and shortness of breath on exertion. HISTORY OF PRESENT ILLNESS: She also admits to lower abdominal pain. The patient denies all other symptoms including fever, cough, n/v/d, CP, hematuria, dysuria, . She has never had this happen in the past. Vital signs on arrival are notable for pulse of 100. REVIEW OF SYSTEMS: GENERAL/CONSTITUTIONAL: No fever/chills. No weakness. No weight change. HEAD, EYES, EARS, NOSE AND THROAT: No change in vision. No ear pain or discharge. No sore throat. CARDIOVASCULAR: +SOB with exertion. No shortness of breath. RESPIRATORY: No cough, wheezing, or hemoptysis. GASTROINTESTINAL: +abdominal pain. +vaginal bleeding x 20 days. No vomiting, diarrhea, constipation. GENITOURINARY: No dysuria, frequency, or change in urination. MUSCULOSKELETAL: No joint or muscle swelling or pain. No neck or back pain. SKIN: No rash or easy bruising. NEUROLOGIC: No headache, vertigo, loss of consciousness, or loss of sensation. PHYSICAL EXAM: GENERAL: The patient is awake, alert, and fully oriented, in no acute distress. She is well appearing. HEAD: Normal with no signs of trauma. ENT: Pupils equal, round and reactive to light, extraocular movements intact, sclera anicteric, conjunctiva clear. Neck supple. LUNGS: Clear to auscultation bilaterally. Normal excursion. No respiratory distress or use of accessory muscles. CV: Rapid rate/regular rhythm, S1/S2, no MRG. Cap refill < 2 sec. ABDOMEN: Diffuse TTP of lower abdomen with passive guarding. Soft, non-distended , no hepatomegaly or splenomegaly, no masses. VAGINAL: Unable to perform as the patient is currently not in a room but out in the hallway. EXTREMITIES: Normal range of motion, no edema. NEUROLOGICAL: Normal speech, normal gait. CN II-XII grossly intact. SKIN: Warm, dry, normal turgor, no rashes or lesions noted. Past History - Past Medical History Allergies/Adverse Reactions: Allergies Allergy/AdvReac Type Severity Reaction Status Date / Time No Known Allergies Allergy Verified 12/03/17 16:08 Home Medications: Ambulatory Orders Ferrous Sulfate [Feosol] 325 mg PO TID 05/31/17 Vitamins (Sjr) - 1 tab PO DAILY 05/31/17 Ibuprofen [Motrin -] 600 mg PO QID #28 tablet 06/03/17 Sulfamethoxazole/Trimethoprim [Bactrim Ds -] 1 tab PO BID #14 tablet 06/17/17 Norgestimate-Ethinyl Estradiol [Ortho-Cyclen] 1 each PO DAILY #28 tablet Anemia: Yes Asthma: No Cancer: No Cardiac Disorders: No CVA: No COPD: No DVT: No Diabetes: No HTN: No Seizures: No Thyroid Disease: No - Surgical History Cardiac Surgery: No - Reproductive History (#): 4 Para: 2 - Suicide/Smoking/Psychosocial Hx Smoking History: Never smoked Have you smoked in the past 12 months: No Information on smoking cessation initiated: No Hx Alcohol Use: No Drug/Substance Use Hx: No Substance Use Type: None Hx Substance Use Treatment: No *Physical Exam - Vital Signs Last Vital Signs Temp Pulse Resp BP Pulse Ox 98.2 F 88 18 155/94 100 12/03/17 16:09 12/03/17 16:09 12/03/17 16:09 12/03/17 16:09 12/03/17 16:09 Heart Score/ECG Review - ECG Intrepretation Comment:: Twelve-lead EKG was performed and reviewed by Dr. Diamond. There is normal sinus rhythm with a normal rate. The axis is normal. The intervals are normal. There are no ST or T wave abnormalities. Impression: Normal twelve-lead EKG ED Treatment Course - LABORATORY CBC & Chemistry Diagram: 12/03/17 16:29 12/03/17 16:29 - ADDITIONAL ORDERS Additional order review: Laboratory Results 12/03/17 12/03/17 16:29 16:29 PT with INR 12.70 INR 1.12 PTT (Actin FS) 28.9 Urine HCG, Qual Negative 12/03/17 16:29 RBC 5.10 MCV 59.8 L MCHC 32.0 RDW 19.6 H MPV 8.9 Neutrophils % 64.0 Lymphocytes % 24.9 D Monocytes % 8.2 Eosinophils % 2.1 Basophils % 0.8 - RADIOLOGY Radiology Studies Ordered: Category Date Time Status TRANSVAGINAL ULTRASOUND US [US] Stat Ultrasound 12/03/17 17:13 Ordered Medical Decision Making - Medical Decision Making A/P: 22 y/o female with 20 days of vaginal bleeding with abdominal pain, dizziness, and SOB on exertion. Plan is as follows: 1. Labs 2. EKG 3. transvaginal ultrasound Mild anemia. I am signing this patient out to my colleague: TIERA Neff In brief, this patient is being seen in the ED for a chief complaint of: 20 days of vaginal bleeding, dizziness, CHILDS, abdominal pain. I have completed the initial assessment interview note and have ordered: labs, EKG, transvaginal ultrasound I have reviewed the following results: cbc, ekg Pending results are: CMP, UA, transvaginal ultrasound Plan for disposition is as follows: Pending *DC/Admit/Observation/Transfer Diagnosis at time of Disposition: Vaginal bleeding - Discharge Dispostion Disposition: HOME Condition at time of disposition: Stable - Prescriptions Prescriptions: Norgestimate-Ethinyl Estradiol [Ortho-Cyclen] 1 each PO DAILY #28 tablet - Referrals Referrals: Melanie Bates MD [Staff Physician] - - Patient Instructions Printed Discharge Instructions: DI for Vaginal Bleeding Additional Instructions: As per Dr. Bates/JEEP MECHANIC Take the also Ortho-Cyclen: Take 3 tabs daily for 3 days Then 2 tablets daily for 2 days Then 1 tablet daily until the bleeding stops. Follow up with Dr. Bates on Sunday December 10, 2017 Return back to the emergency department for severe/persistent or worsening symptoms. Print Language: MOROCCAN - Post Discharge Activity
--- NOTE | 2017-12-03 20:49 | PDOC ---
*Physical Exam - Vital Signs Last Vital Signs Temp Pulse Resp BP Pulse Ox 98.2 F 88 18 155/94 100 12/03/17 16:09 12/03/17 16:09 12/03/17 16:09 12/03/17 16:09 12/03/17 16:09 ED Treatment Course - LABORATORY CBC & Chemistry Diagram: 12/03/17 16:29 12/03/17 16:29 - ADDITIONAL ORDERS Additional order review: Laboratory Results 12/03/17 12/03/17 12/03/17 16:29 16:29 16:29 PT with INR INR PTT (Actin FS) Sodium 139 Potassium 4.0 Chloride 106 Carbon Dioxide 28 Anion Gap 5 L BUN 9 Creatinine 0.7 Creat Clearance w eGFR > 60 Random Glucose 86 Calcium 8.6 Total Bilirubin 0.4 D AST 17 ALT 20 Alkaline Phosphatase 111 Total Protein 7.6 Albumin 3.4 Urine Color Yellow Urine Appearance Slcloudy Urine pH 6.0 Ur Specific Gratz 1.012 Urine Protein 1+ H Urine Glucose (UA) Negative Urine Ketones Negative Urine Blood 3+ H Urine Nitrite Negative Urine Bilirubin Negative Urine Urobilinogen Negative Ur Leukocyte Esterase 1+ H Urine HCG, Qual Negative 12/03/17 16:29 PT with INR 12.70 INR 1.12 PTT (Actin FS) 28.9 Sodium Potassium Chloride Carbon Dioxide Anion Gap BUN Creatinine Creat Clearance w eGFR Random Glucose Calcium Total Bilirubin AST ALT Alkaline Phosphatase Total Protein Albumin Urine Color Urine Appearance Urine pH Ur Specific Gratz Urine Protein Urine Glucose (UA) Urine Ketones Urine Blood Urine Nitrite Urine Bilirubin Urine Urobilinogen Ur Leukocyte Esterase Urine HCG, Qual 12/03/17 16:29 RBC 5.10 MCV 59.8 L MCHC 32.0 RDW 19.6 H MPV 8.9 Neutrophils % 64.0 Lymphocytes % 24.9 D Monocytes % 8.2 Eosinophils % 2.1 Basophils % 0.8 Progress Note - Progress Note Progress Note: 2020hrsS: Spoke to Dr. Bates/RETAIL LOSS PREVENTION OFFICER blocking machine operator second / will come to ER to see pt. Transvaginal ultrasound impression: Borderline thickening of the endometrial stripe measuring 1.45 cm in AP dimension with a trace of fluid within the endometrial cavity. Left ovarian simple cyst/dominant follicle measuring 2 x 1.4 cm. Normal vascular flow in both ovaries without evidence of torsion. There is no free fluid in the cul-de-sac. *DC/Admit/Observation/Transfer Diagnosis at time of Disposition: Vaginal bleeding - Discharge Dispostion Disposition: HOME Condition at time of disposition: Stable Admit: No - Referrals Referrals: Melanie Bates MD [Staff Physician] - - Patient Instructions Printed Discharge Instructions: DI for Vaginal Bleeding Additional Instructions: As per Dr. Bates/RETAIL LOSS PREVENTION OFFICER Take the also Ortho-Cyclen: Take 3 tabs daily for 3 days Then 2 tablets daily for 2 days Then 1 tablet daily until the bleeding stops. Follow up with Dr. Bates on Sunday December 10, 2017 Return back to the emergency department for severe/persistent or worsening symptoms. Print Language: VIETNAMESE - Post Discharge Activity
[2017-12-03 21:20] LABS: URINE BACTERIA RARE /hpf (NONE SEEN); URINE MUCUS RARE
[2017-12-03 21:41] LABS: ANISOCYTOSIS 2+; MACROCYTOSIS 1+
[2017-12-03 21:42] LABS: OVALOCYTE 1+; PLATELET ESTIMATE ADEQUATE
--- NOTE | 2017-12-03 23:46 | CON.OBG ---
Consult Consult Specialty:: APPLICATION ASSISTANT Reason for Consultation:: Vaginal bleeding - History of Present Illness Chief Complaint: Prolonged vaginal bleeding History of Present Illness: 22 yo Para 3, with 3 prior C-Sections, presents to ER c/o vaginal bleeding x 20 days associated with dizziness. She's not on any medication. She's sexually active with but is not taking control. exam is negative. A pelvic sonogram was done and reviewed; there's evidence of 1.45cm endometrium thickness. Patient evaluated, she's not in distress. - History Source History Provided By: Patient Limitations to Obtaining History: No Limitations - Past Medical History ...LMP: 05/03/15 ...: No ...Para: 3 - Past Surgical History Past Surgical History: Yes: - Alcohol/Substance Use Hx Alcohol Use: No History of Substance Use: reports: None - Smoking History Smoking history: Never smoked Have you smoked in the past 12 months: No - Social History Usual Living Arrangement: With Spouse History of Recent Travel: No Home Medications - Allergies Allergies/Adverse Reactions: Allergies Allergy/AdvReac Type Severity Reaction Status Date / Time No Known Allergies Allergy Verified 12/03/17 16:08 - Home Medications Home Medications: Ambulatory Orders Ferrous Sulfate [Feosol] 325 mg PO TID 05/31/17 Vitamins (Sjr) - 1 tab PO DAILY 05/31/17 Ibuprofen [Motrin -] 600 mg PO QID #28 tablet 06/03/17 Sulfamethoxazole/Trimethoprim [Bactrim Ds -] 1 tab PO BID #14 tablet 06/17/17 Norgestimate-Ethinyl Estradiol [Ortho-Cyclen] 1 each PO DAILY #28 tablet Family Disease History - Family Disease History Family History: Unremarkable Review of Systems - Review of Systems Constitutional: reports: No Symptoms Eyes: reports: No Symptoms HENT: reports: No Symptoms Neck: reports: No Symptoms Cardiovascular: reports: No Symptoms Respiratory: reports: No Symptoms Gastrointestinal: reports: No Symptoms Genitourinary: reports: Vaginal Bleeding Breasts: reports: No Symptoms Reported Musculoskeletal: reports: No Symptoms Integumentary: reports: No Symptoms Neurological: reports: No Symptoms Endocrine: reports: No Symptoms Hematology/Lymphatic: reports: No Symptoms Psychiatric: reports: No Symptoms Pain Intensity: 0 Physical Exam-GIZZARD PEELER Vital Signs: Vital Signs Temperature 98.2 F 12/03/17 16:09 Pulse Rate 88 12/03/17 16:09 Respiratory Rate 18 12/03/17 16:09 Blood Pressure 155/94 12/03/17 16:09 O2 Sat by Pulse Oximetry (%) 100 12/03/17 16:09 Constitutional: Yes: Well Nourished Eyes: Yes: Conjunctiva Clear HENT: Yes: Atraumatic Neck: Yes: Supple Cardiovascular: Yes: Regular Rate and Rhythm Respiratory: Yes: Regular Gastrointestinal: Yes: Normal Bowel Sounds ...Rectal Exam: Yes: WNL Renal/: Yes: WNL Pelvis: Yes: WNL External Genitalia: Yes: Normal Vaginal Exam: Yes: Other (Heavy bleeding) Cervix: Yes: Bleeding Uterus: Yes: Normal, Freely Moveable Neurological: Yes: Alert, Oriented ...Motor Strength: WNL Psychiatric: Yes: Alert, Oriented Labs: CBC, BMP 12/03/17 16:29 12/03/17 16:29 Problem List - Problems (1) Menorrhagia with irregular cycle Code(s): N92.1 - EXCESSIVE AND FREQUENT MENSTRUATION WITH IRREGULAR CYCLE Assessment/Plan Menorrhagia Tapered dosage of OCP F/U as out patient with GIZZARD PEELER in one week
--- NOTE | 2017-12-04 10:17 | EKG ---
Test Reason : Blood Pressure : / mmHG Vent. Rate : 068 BPM Atrial Rate : 068 BPM P-R Int : 170 ms QRS Dur : 082 ms QT Int : 410 ms P-R-T Axes : 030 010 018 degrees QTc Int : 435 ms NORMAL SINUS RHYTHM NORMAL ECG NO PREVIOUS ECGS AVAILABLE Confirmed by MD MACKENZIE, RONNIE ([id number]) on 12/04/2017 10:17:06 AM Referred By: Confirmed By:RONNIE MANN MD
--- NOTE | 2017-12-06 07:50 | PDOC ---
Patient Follow-up (Call Back) - Post ED Follow - Up Condition at time of discharge: Stable Disposition at time of original discharge: HOME Reason for Call Back: Abnwl. Microbiology (Patient currently on no antibiotics. Urine culture preliminary shows lactose fermenting negative bacilli. Called the contact numbers and unable to leave message on [phone] and the other one remains busy. Patient does require antibiotics. Will follow up)
== END 2017-12-03 22:09 | disposition home or self-care (01) ==
LOC: JER 16:00
DX: N92.1 Excessive and frequent menstruation with irregular cycle (principal); N83.202 Unspecified ovarian cyst, left side
CPT/HCPCS: 36415; 76830-TC; 80053; 81003; 81015; 84703; 85025; 85610; 85730; 86850; 86900; 86901; 87086; 87186; 93005; 93010; 99282-25

== ENCOUNTER 2018-08-20 21:37 | Emergency (ER) | payer OTHER ==
[2018-08-20 22:07] VITALS: BP 138/97; PULSE 75; TEMP 98.7; BMI 31.3
--- NOTE | 2018-08-20 23:19 | PDOC ---
History of Present Illness - General History Source: Patient Exam Limitations: No Limitations - History of Present Illness Initial Comments: 08/21/18 01:00 The patient is a 22 year old 8 weeks female A1, with no significant past medical history, who presents to the ED with, vaginal bleeding. She last saw her CHIEF PHYSICAL THERAPIST 3 weeks ago ([address]) at which time she did not have an ultrasound. She endorses during her last she had vaginal spotting throughout. She denies any fever, chills, abnormal vaginal discharge, chest pain, or SOB. NKDA LMP: 06/25/2018 <Ela Hinds - Last Filed: 08/21/18 01:00> <Jannette Diamond - Last Filed: 08/21/18 02:04> - General Chief Complaint: Vaginal Bleeding Stated Complaint: 8 WEEKS BLEEDING Time Seen by Provider: 08/20/18 23:18 Past History <Ela Hinds - Last Filed: 08/21/18 01:00> - Past Medical History Anemia: Yes Asthma: No Cancer: No Cardiac Disorders: No CVA: No COPD: No DVT: No Diabetes: No HTN: No Seizures: No Thyroid Disease: No - Surgical History Cardiac Surgery: No - Reproductive History (#): 4 Para: 2 - Suicide/Smoking/Psychosocial Hx Smoking History: Never smoked Have you smoked in the past 12 months: No Information on smoking cessation initiated: No Hx Alcohol Use: No Drug/Substance Use Hx: No Substance Use Type: None Hx Substance Use Treatment: No <Jannette Diamond - Last Filed: 08/21/18 02:04> - Past Medical History Allergies/Adverse Reactions: Allergies Allergy/AdvReac Type Severity Reaction Status Date / Time No Known Allergies Allergy Verified 12/03/17 16:08 Home Medications: Ambulatory Orders Ferrous Sulfate [Feosol] 325 mg PO TID 05/31/17 Vitamins (Sjr) - 1 tab PO DAILY 05/31/17 Ibuprofen [Motrin -] 600 mg PO QID #28 tablet 06/03/17 Sulfamethoxazole/Trimethoprim [Bactrim Ds -] 1 tab PO BID #14 tablet 06/17/17 Norgestimate-Ethinyl Estradiol [Ortho-Cyclen] 1 each PO DAILY #28 tablet Nitrofurantoin Monohyd/M-Cryst [Macrobid -] 100 mg PO BID #14 capsule 12/08/17 Review of Systems - Review of Systems Able to Perform ROS?: Yes Constitutional: No: Symptoms Reported, See HPI, Chills, Diaphoresis, Fever, Loss of Appetite, Malaise, Night Sweats, Weakness, Weight Stable, Unintentional Wgt. Loss, Unexplained wgt Loss, Other HEENTM: No: Symptoms Reported, See HPI, Eye Pain, Blurred Vision, Tearing, Recent change in vision, Double Vision, Cataracts, Ear Pain, Ocular Prothesis, Ear Discharge, Nose Pain, Nose Congestion, Tinnitus, Nose Bleeding, Hearing Loss , Throat Pain, Throat Swelling, Mouth Pain, Dental Problems, Difficulty Swallowing, Mouth Swelling, Other Respiratory: No: Symptoms reported, See HPI, Cough, Orthopnea, Shortness of Breath, SOB with Exertion, SOB at Rest, Stridor, Wheezing, Productive cough, Hemoptysis, Other Cardiac (ROS): No: Symptoms Reported, See HPI, Chest Pain, Edema, Irregular Heart Rate, Lightheadedness, Palpitations, Syncope, Chest Tightness, Other ABD/GI: Yes: Abd. Pain w/ defecation : Yes: Other (Vaginal bleeding.) Musculoskeletal: No: Symptoms Reported, See HPI, Back Pain, Gout, Joint Pain, Joint Swelling, Muscle Pain, Muscle Weakness, Neck Pain, Joint Stiffness, Other Integumentary: No: Symptoms Reported, See HPI, Bruising, Change in Color, Change in Hair/Nails, Dryness, Erythema, Flushing, Lesions, Lumps, Pallor, Pruritus, Rash, Sweating, Other Neurological: No: Symptoms reported, See HPI, Headache, Numbness, Paresthesia, Pre-Existing Deficit, Seizure, Tingling, Tremors, Weakness, Unsteady Gait, Ataxia, Dizziness, Other Psychiatric: No: Anxiety, Depression, Frequent Crying, Stressors, Sleep Pattern Change, Emotional Problems, Mood Swings, Change in Appetite, Other Endocrine: No: Symptoms Reported, See HPI, Excessive Sweating, Flushing, Intolerance to Cold, Intolerance to Heat, Increased Hunger, Increased Thirst, Increased Urine, Unexplained Weight Gain, Unexplained Weight Loss, Change in Weight, Other Hematologic/Lymphatic: No: Symptoms Reported, See HPI, Anemia, Blood Clots, Easy Bleeding, Easy Bruising, Bleeding Diathesis, Lymph Node Abnormalities, Swollen Glands, Other All Other Systems: Reviewed and Negative <Ela Hinds - Last Filed: 08/21/18 01:00> *Physical Exam - Vital Signs Last Vital Signs Temp Pulse Resp BP Pulse Ox 98.7 F 75 18 138/97 100 08/20/18 22:05 08/20/18 22:05 08/20/18 22:05 08/20/18 22:05 08/20/18 22:05 - Physical Exam General Appearance: Yes: Nourished, Appropriately Dressed, Apparent Distress Respiratory/Chest: positive: Lungs Clear, Normal Breath Sounds Cardiovascular: positive: Regular Rhythm, Regular Rate Female Pelvic Exam: positive: normal external exam, cervical os closed, normal adnexa, vaginal bleeding, other (Blood in vaginal vault.) Gastrointestinal/Abdominal: positive: Normal Bowel Sounds, Soft Rectal Exam: positive: deferred Extremity: positive: Normal Inspection, Normal Range of Motion Integumentary: positive: Normal Color Neurologic: positive: Fully Oriented, Alert, Normal Mood/Affect, Normal Response <Ela Hinds - Last Filed: 08/21/18 01:00> - Vital Signs Last Vital Signs Temp Pulse Resp BP Pulse Ox 98.7 F 75 18 138/97 100 08/20/18 22:05 08/20/18 22:05 08/20/18 22:05 08/20/18 22:05 08/20/18 22:05 <Jannette Diamond - Last Filed: 08/21/18 02:04> Moderate Sedation - Procedure Monitoring Vital Signs: Procedure Monitoring Vital Signs Temperature 98.7 F 08/20/18 22:05 Pulse Rate 75 08/20/18 22:05 Respiratory Rate 18 08/20/18 22:05 Blood Pressure 138/97 08/20/18 22:05 O2 Sat by Pulse Oximetry (%) 100 08/20/18 22:05 <Ela Hinds - Last Filed: 08/21/18 01:00> - Procedure Monitoring Vital Signs: Procedure Monitoring Vital Signs Temperature 98.7 F 08/20/18 22:05 Pulse Rate 75 08/20/18 22:05 Respiratory Rate 18 08/20/18 22:05 Blood Pressure 138/97 08/20/18 22:05 O2 Sat by Pulse Oximetry (%) 100 08/20/18 22:05 <Jannette Diamond - Last Filed: 08/21/18 02:04> Medical Decision Making - Medical Decision Making 08/21/18 00:02 22-year-old female, last menstrual period 06/25/2018. Presents with vaginal bleeding. 5 para 3, one miscarriage. She had positive test 3 weeks ago at her primary care physician's office. Denies chills, fever Pelvic exam does show active bleeding in the vaginal vault, there is no large clots Impression threatened AB and the plan is for transvaginal ultrasound, beta-hCG, type and screen 08/21/18 02:02 Transvaginal ultrasound shows a single live intrauterine approximately 8 weeks and 5 days. No evidence of subchorionic hematoma. <Jannette Diamond - Last Filed: 08/21/18 02:04> *DC/Admit/Observation/Transfer - Attestations Scribe Attestion: 08/21/18 01:05 Documentation prepared by Ela Hinds, acting as medical sales representative for Jannette Diamond MD. <Ela Hinds - Last Filed: 08/21/18 01:00> <Jannette Diamond - Last Filed: 08/21/18 02:04> Diagnosis at time of Disposition: Threatened in first trimester - Discharge Dispostion Condition at time of disposition: Stable - Referrals Referrals: Lorna Dorsey MD [Primary Care Provider] - - Patient Instructions Printed Discharge Instructions: DI for Threatened Additional Instructions: please follow up with your cytometry technologist for continued care Print Language: NORWEGIAN - Post Discharge Activity
[2018-08-21 02:27] LABS: BASO % 0.7 % (0-2.0); EOS % 1.3 % (0-4.5); HEMATOCRIT 29.6 % (32.4-45.2); HEMOGLOBIN 9.7 GM/dL (10.7-15.3); LYMPH % 21.6 % (8-40); MCHC 32.9 g/dl (32.0-36.0); MEAN PLT VOLUME 9.9 fl (7.5-11.1); MONO % 8.6 % (3.8-10.2); NEUT % 67.8 % (42.8-82.8); PLATELET COUNT 268 K/MM3 (134-434); RBC 5.11 M/mm3 (3.60-5.2); RDW 21.7 % (11.6-15.6); WHITE BLOOD COUNT 13.1 K/mm3 (4.0-10.0)
[2018-08-21 02:43] LABS: MCH 19.1 pg (25.7-33.7)
[2018-08-21 02:48] LABS: ANISOCYTOSIS 2+
== END 2018-08-21 02:51 | disposition home or self-care (01) ==
LOC: JER 21:37
DX: O26.891 Other specified pregnancy related conditions, first trimester (principal); O20.0 Threatened abortion; Z3A.08 8 weeks gestation of pregnancy
CPT/HCPCS: 36415; 76801-TC; 84702; 85025; 99282-25

== ENCOUNTER 2019-03-25 10:20 | Inpatient (IN) | payer OTHER ==
[2019-03-25] MEDS ORDERED: CITRIC ACID/SODIUM CITRATE 30 ML UNIT-DOSE CUP PO ONE (10:47)
[2019-03-25] MEDS ORDERED: ELECTROLYTE-148 SOLN 1,000 ML IV SCH (11:00)
[2019-03-25 11:02] VITALS: BMI 31.8
--- NOTE | 2019-03-25 11:02 | HP ---
Past Medical History - Primary Care Physician PCP:: Lane Castrejon - Admission Chief Complaint: 39 weeks, 3 previous c/s, anemia History of Present Illness: 23 yo f g 4 p2002 with 3 previous c/s , requesting repeat c/s , declined BTL, cx clp vx -3 mi , fhr cat 1,, no contraction History Source: Patient Limitations to Obtaining History: Language Barrier - Past Medical History ...: 5 ...Para: 3 ...Term: 3 ...: 0 ...Spon : 1 ...EDC by Sono: 03/29/19 Heme/Onc: Yes: Anemia (s/p 2 units PRBC pre op), Sickle Cell Trait - Past Surgical History Past Surgical History: Yes: Hx Myomectomy: No Hx Transabdominal Cerclage: No - Smoking History Smoking history: Never smoked Have you smoked in the past 12 months: No - Alcohol/Substance Use Hx Alcohol Use: No History of Substance Use: reports: None - Social History History of Recent Travel: No Home Medications - Allergies Allergies/Adverse Reactions: Allergies Allergy/AdvReac Type Severity Reaction Status Date / Time No Known Allergies Allergy Verified 02/16/19 23:42 - Home Medications Home Medications: Ambulatory Orders Ferrous Sulfate [Feosol] 325 mg PO TID 05/31/17 Vitamins (Sjr) - 1 tab PO DAILY 05/31/17 Review of Systems - Review of Systems Constitutional: reports: No Symptoms Eyes: reports: No Symptoms HENT: reports: No Symptoms Neck: reports: No Symptoms Cardiovascular: reports: No Symptoms Respiratory: reports: No Symptoms Gastrointestinal: reports: No Symptoms Genitourinary: reports: No Symptoms Breasts: reports: No Symptoms Reported Musculoskeletal: reports: No Symptoms Integumentary: reports: No Symptoms Neurological: reports: No Symptoms Endocrine: reports: No Symptoms Hematology/Lymphatic: reports: No Symptoms Psychiatric: reports: No Symptoms Physical Exam - Maternity Constitutional: Yes: Well Nourished, No Distress, Calm Eyes: Yes: WNL, Conjunctiva Clear, EOM Intact HENT: Yes: WNL, Atraumatic, Normocephalic Neck: Yes: WNL, Supple, Trachea Midline Cardiovascular: Yes: WNL, Regular Rate and Rhythm Breast(s): Yes: WNL - Abdominal Exam/OB Fundal Height: 38 Number of Fetuses: Single Presentation: Vertex Contractions: No Intensity: Unaware Monitor Mode: External Heart Rate Location: [facility] Category: I Accelerations: Uniform Decelerations: None - Vaginal Exam/OB Vaginal Bleediing: No Speculum Exam: No Dilatation (cm): closed Effacement (%): 50 Amniotic Membrane Status: Intact Presentation: Vertex/Position Station: -2 - Physical Exam Musculoskeletal: Yes: WNL Extremities: Yes: WNL Edema: Yes Edema: LLE: Trace, RLE: Trace Hemorrhage Risk Assessment - Risk Factors Medium Risk Factors: Yes: Prior , uterine surgery,or multiple laparotomies, Multiple gestation Risk Score: 2 Risk Level: High Risk Problem List - Problems (1) with 39 completed weeks gestation Code(s): Z3A.39 - 39 WEEKS GESTATION OF (2) Previous section complicating Code(s): O34.219 - MATERNAL CARE FOR UNSP TYPE SCAR FROM PREVIOUS DEL (3) Anemia affecting Code(s): O99.019 - ANEMIA COMPLICATING , UNSPECIFIED TRIMESTER Qualifiers: Trimester: third trimester Qualified Code(s): O99.013 - Anemia complicating , third trimester Assessment/Plan plan admit risks associated with repeat multiple c/s has explained to her in detail , risks of hemorrhage , need for c/s hysterectomy discussed
[2019-03-25] MEDS ORDERED: morphine SULFATE/PF 0.5 MG/ML (2cc Syringe - QUVA) ONE (11:12)
[2019-03-25] MEDS ORDERED: OXYTOCIN 20 UNITS in 0.9% NS 20 UNIT/1,000 ML INFUS.BAG IV ONE (11:12)
[2019-03-25] MEDS ORDERED: ePHEDrine SULFATE 50 MG/1 ML AMPULE ONE (11:13)
[2019-03-25] MEDS ORDERED: ceFAZolin SODIUM 1 GM VIAL ONE (11:13)
[2019-03-25 11:36] LABS: BASO % 0.5 % (0-2.0); EOS % 0.9 % (0-4.5); HEMOGLOBIN 10.3 GM/dL (10.7-15.3); LYMPH % 19.7 % (8-40); MCH 24.3 pg (25.7-33.7); MCHC 33.2 g/dl (32.0-36.0); MEAN CELL VOLUME 73.3 fl (80-96); MEAN PLT VOLUME 8.8 fl (7.5-11.1); NEUT % 71.9 % (42.8-82.8); PLATELET COUNT 153 K/MM3 (134-434); RBC 4.23 M/mm3 (3.60-5.2); RDW 31.6 % (11.6-15.6)
[2019-03-25] MEDS ORDERED: MIDAZOLAM HCL 2 MG/2 ML SINGLE DOSE VIAL ONE (12:14)
[2019-03-25] MEDS ORDERED: DEXAMETHASONE SOD PHOSPHATE 4 MG/1 ML VIAL ONE (12:14)
[2019-03-25] MEDS ORDERED: LIDOCAINE HCL/PF 2% SDV 5ML VIAL ONE (12:28)
[2019-03-25] MEDS ORDERED: KETOROLAC TROMETHAMINE 30 MG/1 ML VIAL ONE (12:33)
[2019-03-25] MEDS ORDERED: oxyCODONE HCL 5 MG TABLET PO PRN (12:56)
[2019-03-25] MEDS ORDERED: WITCH HAZEL 50% (TUCKS) 40 PAD/JAR PAD TP PRN (12:56)
[2019-03-25] MEDS ORDERED: BENZOCAINE 20% 57 GM BOTTLE TP PRN (12:56)
[2019-03-25] MEDS ORDERED: METHYLERGONOVINE MALEATE 0.2 MG/1 ML AMP IM PRN (12:56)
[2019-03-25] MEDS ORDERED: BENZOCAINE 28 GM HEMORRHOIDAL OINTMENT PR PRN (12:56)
[2019-03-25] MEDS ORDERED: diphenhydrAMINE HCL 25 MG CAPSULE (FP) PO PRN (12:56)
[2019-03-25] MEDS ORDERED: IBUPROFEN 800 MG/8 ML IJ IVPB PRN (12:56)
[2019-03-25] MEDS ORDERED: OXYTOCIN 20 UNITS in 0.9% NS 20 UNIT/1,000 ML INFUS.BAG IV SCH (13:00)
--- NOTE | 2019-03-25 13:00 | OP ---
Operative Note - Note: Operative Date: 03/25/19 Pre-Operative Diagnosis: 39 weeks, 3 previous c/s Operation: repeat LCT c/s Findings: live baby 9/9. pelvic adhesions Surgeon: Lane Castrejon Infrastructure Manager: Esvin Eid Anesthesiologist/MYSQL DBA: Nancy Tran Anesthesia: Spinal Specimens Removed: placenta Estimated Blood Loss (mls): 500 Drains & Tubes with Location: martinez Blood Volume Replaced (mls): 0 Operative Report Dictated: Yes
--- NOTE | 2019-03-25 13:38 | OP ---
DATE OF OPERATION: 03/25/2019 PREOPERATIVE DIAGNOSIS: 39 weeks, previous section x3, requested repeat section. POSTOPERATIVE DIAGNOSIS: 39 weeks, previous section x3, requested repeat section, pelvic adhesion. SURGEON: Jaqui Castrejon M.D. SPRAY DRIER OPERATOR: Esvin Eid MD ANESTHESIA: Spinal. ANESTHESIOLOGIST: JESUS Son ESTIMATED BLOOD LOSS: 500 mL OPERATION: Patient was taken to the operating room under adequate spinal anesthesia in dorsal supine position abdomen and perineum was prepped and draped. A Pfannenstiel abdominal skin incision was made over the previous incision. The abdominal wall was cut [id number] until the peritoneum was exposed and incised. Upon entering the abdominal cavity there were several pelvic adhesions. Bladder was adherent to the lower uterine segment. Also there was adhesion band on the right round ligament area, which was grasped with Caryn clamps, cut and the clamp replaced with 0 Biosyn ties. Then the bladder was dissected from the uterus and pushed down. Then, a low transverse incision was made. The incision was extended laterally with bandage scissors. Amniotic sac was entered. Light meconium was noted. The baby was delivered from right occiput transverse position and the nasopharynx was suctioned. Live baby boy was delivered. Placenta was delivered manually. Uterine cavity was cleaned of all remaining tissue. The uterine incision was closed in 2 layers. The 1st layer with 0 Biosyn continuous suture. The 2nd layer with 0 Biosyn embricating the 1st layer. There was a small amount of bleeding from the right uterine angle, which was sutured with interrupted suture of a 0 Biosyn. Both tubes and ovaries were checked and normal. No active bleeding was seen. All the lap pads, sponges and instrument counts were correct. The peritoneum was closed with 0 Biosyn continuous suture. There was some slight amount of oozing from the rectus muscle underneath the fascia, which Surgicel was applied and hemostasis was established. Then, the fascia was closed with 0 Biosyn continuous suture, muscle with interrupted suture of 0 Biosyn. The fascia was closed with 0 Biosyn continuous suture, subcutaneous fat with interrupted suture of 0 Biosyn and the skin was closed with harjit. Patient tolerated the procedure well, left the OR in good condition. JAQUI CASTREJON M.D. [id number]
[2019-03-25] MEDS: CEFAZOLIN 1 GM/D5W 1 GM/50 ML BAG IVPB SCH (18:24)
--- NOTE | 2019-03-25 22:55 | PN ---
Progress Note (short form) - Note Progress Note: I assisted Dr. RIGGS on repeat c/section (4th) for the entirety of the case.
[2019-03-26] MEDS: CEFAZOLIN 1 GM/D5W 1 GM/50 ML BAG IVPB SCH (02:14)
[2019-03-26] MEDS: DEXTROSE 5%-LACTATED RINGERS 1,000 ML IV SCH ×2 (02:15→16:19)
[2019-03-26] MEDS: oxyCODONE HCL 5 MG TABLET PO PRN ×4 (05:31→20:30)
[2019-03-26] MEDS: IBUPROFEN 600 MG TABLET (FP) PO PRN ×4 (05:31→20:29)
[2019-03-26] MEDS: SIMETHICONE 80 MG TAB.CHEW (FP) PO PRN ×3 (05:31→20:29)
[2019-03-26 07:22] LABS: BASO % 0.2 % (0-2.0); EOS % 0.2 % (0-4.5); HEMOGLOBIN 9.3 GM/dL (10.7-15.3); LYMPH % 12.3 % (8-40); MCH 24.4 pg (25.7-33.7); MCHC 33.1 g/dl (32.0-36.0); MEAN CELL VOLUME 73.7 fl (80-96); MEAN PLT VOLUME 8.4 fl (7.5-11.1); MONO % 8.8 % (3.8-10.2); NEUT % 78.5 % (42.8-82.8); PLATELET COUNT 146 K/MM3 (134-434); RDW 31.6 % (11.6-15.6); WHITE BLOOD COUNT 16.4 K/mm3 (4.0-10.0)
--- NOTE | 2019-03-26 07:41 | PN ---
Post Progress Note - Subjective Subjective: c/o pain at op site , scale 5/10 voided after martinez is taken out Post Day: 1 Type of Delivery: Repeat C/S Vital Signs: Vital Signs Temperature 97.8 F 03/26/19 06:00 Pulse Rate 68 03/26/19 06:00 Respiratory Rate 18 03/26/19 06:00 Blood Pressure 107/68 03/26/19 06:00 O2 Sat by Pulse Oximetry (%) Breast Exam: Yes: Soft, Other (BF ). No: Engorged Uterus: Yes: Fundus Firm, Fundus below umbilicus, Non-tender Incision: Yes: Dressing dry and intact. No: Oozing Abdomen/GI: Yes: Abdomen soft (bs active), Passing flatus, Tolerating PO ( liquids). No: Abdominal Distention (obese abdomen), Tender Lochia: Yes: Rubra Lochia, amount: Moderate Extremities: Yes: Calves non-tender Perineum: Yes: Intact Activity: Ambulating - Labs Labs: CBC WBC 9.0 K/mm3 (4.0-10.0) 03/25/19 10:50 RBC 4.23 M/mm3 (3.60-5.2) 03/25/19 10:50 Hgb 10.3 GM/dL (10.7-15.3) L 03/25/19 10:50 Hct 31.0 % (32.4-45.2) L 03/25/19 10:50 MCV 73.3 fl (80-96) L 03/25/19 10:50 MCH 24.3 pg (25.7-33.7) L 03/25/19 10:50 MCHC 33.2 g/dl (32.0-36.0) 03/25/19 10:50 RDW 31.6 % (11.6-15.6) H 03/25/19 10:50 Plt Count 153 K/MM3 (134-434) 03/25/19 10:50 MPV 8.8 fl (7.5-11.1) 03/25/19 10:50 Absolute Neuts (auto) 6.5 K/mm3 (1.5-8.0) 03/25/19 10:50 Neutrophils % 71.9 % (42.8-82.8) 03/25/19 10:50 Lymphocytes % 19.7 % (8-40) D 03/25/19 10:50 Monocytes % 7.0 % (3.8-10.2) 03/25/19 10:50 Eosinophils % 0.9 % (0-4.5) 03/25/19 10:50 Basophils % 0.5 % (0-2.0) 03/25/19 10:50 Nucleated RBC % 0 % (0-0) 03/25/19 10:50 Other Findings, Remarks: RS Cta I/o 3300/600(fo;ey out put), pt voided large amount Problem List - Problems (1) examination following delivery Code(s): Z39.2 - ENCOUNTER FOR ROUTINE FOLLOW-UP Assessment/Plan stable s/p rc/s day #1 advance reg diet encourage po fluids, ambulation , deep breathing ex po cbc pending ct po care
[2019-03-26] MEDS: ENOXAPARIN NA (PORCINE) 40 MG/0.4 ML DISP.SYRIN SQ SCH (09:19)
[2019-03-26] MEDS ORDERED: DIPHTH,PERTUSS(ACELL),TET 0.5 ML DISP.SYRIN IM ONE (10:00)
[2019-03-26] MEDS ORDERED: BISACODYL 10 MG SUPP.RECT PR PRN (12:56)
--- NOTE | 2019-03-26 15:03 | PN ---
Progress Note (short form) - Note Progress Note: Anesthesia postop note 23 y/o F s/p spinal anesthesia/duramorph for repeat section POD#1, vss, aaox3, no complaints, sensory motor intact distally. No anesthesia complications.
[2019-03-27] MEDS: SIMETHICONE 80 MG TAB.CHEW (FP) PO PRN ×5 (02:12→21:38)
[2019-03-27] MEDS: oxyCODONE HCL 5 MG TABLET PO PRN ×5 (02:12→21:38)
[2019-03-27] MEDS: IBUPROFEN 600 MG TABLET (FP) PO PRN ×5 (02:13→21:39)
--- NOTE | 2019-03-27 06:34 | PN ---
Post Progress Note - Subjective Subjective: Pain controlled. No fevers/chills. Post Day: 2 Type of Delivery: Repeat C/S Vital Signs: Vital Signs Temperature 98.4 F 03/26/19 22:00 Pulse Rate 69 03/26/19 22:00 Respiratory Rate 18 03/26/19 22:00 Blood Pressure 120/72 03/26/19 22:00 O2 Sat by Pulse Oximetry (%) Uterus: Yes: Fundus below umbilicus Incision: Yes: Dressing dry and intact, [place] intact Abdomen/GI: Yes: Abdomen soft, Passing flatus, Tolerating PO Lochia: Yes: Rubra Lochia, amount: Small Extremities: Yes: Calves non-tender Perineum: Yes: Intact Activity: Ambulating - Labs Labs: CBC WBC 16.4 K/mm3 (4.0-10.0) H 03/26/19 06:58 RBC 3.80 M/mm3 (3.60-5.2) 03/26/19 06:58 Hgb 9.3 GM/dL (10.7-15.3) L 03/26/19 06:58 Hct 28.0 % (32.4-45.2) L 03/26/19 06:58 MCV 73.7 fl (80-96) L 03/26/19 06:58 MCH 24.4 pg (25.7-33.7) L 03/26/19 06:58 MCHC 33.1 g/dl (32.0-36.0) 03/26/19 06:58 RDW 31.6 % (11.6-15.6) H 03/26/19 06:58 Plt Count 146 K/MM3 (134-434) 03/26/19 06:58 MPV 8.4 fl (7.5-11.1) 03/26/19 06:58 Absolute Neuts (auto) 12.9 K/mm3 (1.5-8.0) H 03/26/19 06:58 Neutrophils % 78.5 % (42.8-82.8) 03/26/19 06:58 Lymphocytes % 12.3 % (8-40) D 03/26/19 06:58 Monocytes % 8.8 % (3.8-10.2) 03/26/19 06:58 Eosinophils % 0.2 % (0-4.5) 03/26/19 06:58 Basophils % 0.2 % (0-2.0) 03/26/19 06:58 Nucleated RBC % 0 % (0-0) 03/26/19 06:58 Assessment/Plan 23yo s/p RLTCS, POD#2 Routine PP care Routine PO pain control Labs reviewed Anticipate D/C to home POD#3 Misty Saavedra MD
[2019-03-27] MEDS: ENOXAPARIN NA (PORCINE) 40 MG/0.4 ML DISP.SYRIN SQ SCH (09:21)
[2019-03-27] MEDS: SENNOSIDES/DOCUSATE COMBO (SENNA PLUS) TABLET (UD) PO PRN (21:40)
[2019-03-28] MEDS: oxyCODONE HCL 5 MG TABLET PO PRN ×4 (02:49→20:37)
[2019-03-28] MEDS: SIMETHICONE 80 MG TAB.CHEW (FP) PO PRN ×5 (02:49→20:37)
[2019-03-28] MEDS: IBUPROFEN 600 MG TABLET (FP) PO PRN ×5 (02:50→20:39)
--- NOTE | 2019-03-28 06:52 | PN ---
Progress Note (short form) - Note Progress Note: pod 3 doing well, ambulating ., passing gas CBC, BMP 03/26/19 06:58 Last Vital Signs Temp Pulse Resp BP Pulse Ox 98.6 F 81 18 119/88 03/27/19 22:00 03/27/19 22:00 03/27/19 22:00 03/27/19 22:00 abdomen soft, no distension, no cva incision dry, clean no calf tenderness plan ambulate , cbc today Problem List - Problems (1) with 39 completed weeks gestation Code(s): Z3A.39 - 39 WEEKS GESTATION OF (2) Previous section complicating Code(s): O34.219 - MATERNAL CARE FOR UNSP TYPE SCAR FROM PREVIOUS DEL (3) Anemia affecting Code(s): O99.019 - ANEMIA COMPLICATING , UNSPECIFIED TRIMESTER Qualifiers: Trimester: third trimester Qualified Code(s): O99.013 - Anemia complicating , third trimester
[2019-03-28 08:49] LABS: BASO % 0.1 % (0-2.0); EOS % 1.2 % (0-4.5); HEMATOCRIT 24.7 % (32.4-45.2); HEMOGLOBIN 8.3 GM/dL (10.7-15.3); LYMPH % 12.9 % (8-40); MCHC 33.5 g/dl (32.0-36.0); MEAN CELL VOLUME 74.6 fl (80-96); MEAN PLT VOLUME 8.7 fl (7.5-11.1); MONO % 8.9 % (3.8-10.2); NEUT % 76.9 % (42.8-82.8); PLATELET COUNT 150 K/MM3 (134-434); RBC 3.31 M/mm3 (3.60-5.2); RDW 31.2 % (11.6-15.6); WHITE BLOOD COUNT 12.9 K/mm3 (4.0-10.0)
[2019-03-28] MEDS: ENOXAPARIN NA (PORCINE) 40 MG/0.4 ML DISP.SYRIN SQ SCH (09:51)
[2019-03-28] MEDS ORDERED: oxyCODONE HCL 5 MG TABLET PO PRN (17:09)
--- NOTE | 2019-03-28 20:21 | PATH ---
Surgical Pathology Report Patient Name: RYLAN CAMEJO [facility]. Rec. #: [id number] /Age/Gender: 1995 (Age: 23) / F Account: [id number] Location: [facility] OBS/OIL DEVELOPER Taken: 03/25/2019 Received: 03/26/2019 Reported: 03/28/2019 Physicians: Lane Castrejon M.D. Specimen(s) Received PLACENTA Clinical History Previous x3 Final Diagnosis PLACENTA: THIRD TRIMESTER PLACENTA WITH FOCAL INFARCTION (1 CM GREATEST DIMENSION). TRIVASCULAR CORD. MEMBRANES WITH NO DIAGNOSTIC ABNORMALITIES. Electronically Signed Jesus Vallejo M.D. Gross Description The specimen is received fresh labeled placenta and is a 509 gram, 15.0 x 14.5 x 3.8 cm. placenta with attached membranes and umbilical cord. The attached membranes are [place], translucent with focal opacities and insert marginally. The umbilical cord measures 23 cm. in length and averages 1 cm. in diameter. The cord inserts eccentrically, 2.5 cm. to the nearest margin. No true knots or strictures are identified. Cut surface of the umbilical cord reveals 3 vessels. The surface is ozuna blue with moderate fibrin deposition and appropriate caliber vessels. The maternal surface is red-brown with focal defects. Sectioning reveals red-brown, spongy parenchyma. No lesions are identified. Corduroy Brusher Operator sections are submitted in three cassettes as follows: 1- membrane rolls and umbilical cord; 2-3- full thickness sections of placenta. 03/27/2019 [facility]03/27/2019
[2019-03-28] MEDS: SENNOSIDES/DOCUSATE COMBO (SENNA PLUS) TABLET (UD) PO PRN (20:41)
[2019-03-28 22:40] VITALS: PULSE 89
[2019-03-29] MEDS: SIMETHICONE 80 MG TAB.CHEW (FP) PO PRN ×2 (01:28→09:35)
[2019-03-29] MEDS: oxyCODONE HCL 5 MG TABLET PO PRN (01:28)
[2019-03-29] MEDS: IBUPROFEN 600 MG TABLET (FP) PO PRN ×2 (01:29→09:35)
[2019-03-29 09:22] VITALS: BP 118/67; TEMP 98.5
[2019-03-29] MEDS ORDERED: ACETAMINOPHEN/CAFFEINE/BUTALBITAL 1 TAB PO ONE (09:32)
[2019-03-29] MEDS: ENOXAPARIN NA (PORCINE) 40 MG/0.4 ML DISP.SYRIN SQ SCH (09:36)
--- NOTE | 2019-03-29 09:49 | DS ---
Physical Exam-ZIGZAG APPLIQUER Vital Signs: Vital Signs Temperature 98.5 F 03/29/19 09:21 Pulse Rate 89 03/29/19 09:21 Respiratory Rate 16 03/29/19 09:21 Blood Pressure 118/67 03/29/19 09:21 O2 Sat by Pulse Oximetry (%) Constitutional: Yes: Well Nourished Eyes: Yes: Conjunctiva Clear HENT: Yes: Atraumatic Neck: Yes: Supple Cardiovascular: Yes: Regular Rate and Rhythm Respiratory: Yes: Regular Gastrointestinal: Yes: Normal Bowel Sounds ...Rectal Exam: Yes: WNL Renal/: Yes: WNL Pelvis: Yes: WNL Vaginal Exam: Yes: Normal Cervix: Yes: Normal Uterus: Yes: Firm ....Post : Yes: Uterus firm Breast(s): Yes: WNL Musculoskeletal: Yes: WNL Extremities: Yes: WNL Integumentary: Yes: WNL Wound/Incision: Yes: Well Approximated Neurological: Yes: Alert, Oriented ...Motor Strength: WNL Psychiatric: Yes: Alert, Oriented Labs: CBC, BMP 03/28/19 08:21 Delivery - Delivery Type of Anesthesia: Spinal EBL (cc): 600 Delivery, Single - Stages of Labor Date of Delivery: 03/25/19 Time of Delivery: 12:15 Time Placenta Delivered: 12:16 - Condition of Infant Dog Catcher/Configuration Management Analyst Present: Yes Name: Francisco Horta Infant Gender: Female Weight: 6 lb 12 oz Position: OP, OT Total Hours ROM (Hrs/Mins): 1M - 1 Minute Total Score: 9 5 Minutes Total Score: 9 - [place] Feeding Plan Initial Plan: Elected not to breastfeed exclusively throughout hospitalization Discharge Summary Reason For Visit: REPEAT Current Active Problems Anemia affecting (Acute) examination following delivery (Acute) with 39 completed weeks gestation (Acute) Previous section complicating (Acute) Procedures: Principal: Repeat Low Transverse Hospital Course: Routine care Condition: Stable - Instructions Diet, Activity, Other Instructions: Regular Diet Follow up in 1 week for an incision check Referrals: Lane Castrejon MD [Staff Physician] - Disposition: HOME - Home Medications Comprehensive Discharge Medication List: Ambulatory Orders Ferrous Sulfate [Feosol] 325 mg PO TID 05/31/17 Vitamins (Sjr) - 1 tab PO DAILY 05/31/17 Ibuprofen [Motrin -] 600 mg PO QID #28 tablet 03/27/19
[2019-03-29] MEDS: DEXTROSE 5%-LACTATED RINGERS 1,000 ML IV SCH (14:30)
== END 2019-03-29 12:55 | disposition home or self-care (01) | DRG 540 ==
LOC: JLDR 10:20 → J3W 14:21
PROVIDERS: ADMIT Obstetrics & Gynecology; ATTEND Obstetrics & Gynecology
PROC: 10D00Z1 Extraction of Products of Conception, Low, Open Approach (ICD-10-PCS; principal; 2019-03-25)
DX: O34.211 Maternal care for low transverse scar from previous cesarean delivery (principal); D57.3 Sickle-cell trait; D64.9 Anemia, unspecified; O99.02 Anemia complicating childbirth; N73.6 Female pelvic peritoneal adhesions (postinfective); O99.89 Other specified diseases and conditions complicating pregnancy, childbirth and the puerperium; Z3A.39 39 weeks gestation of pregnancy; Z37.0 Single live birth
CPT/HCPCS: 36415; 36600; 82803; 85025; 86850; 86900; 86901; 86922; 88307-TC; 90715